=== PATIENT | female | born 1940 | race Caucasian/White ===

== ENCOUNTER 2019-03-07 13:29 | Outpatient (CLI) | payer MEDICARE ==
--- NOTE | 2019-03-07 14:27 | MMO ---
Bilateral MAMMO Bilat Screen [facility]. CLINICAL HISTORY: Patient is 78 years old and is seen for screening. The patient has no family history of breast cancer. The patient has no personal history of cancer. VIEWS: The views performed were: bilateral craniocaudal with tomosynthesis and bilateral mediolateral oblique with tomosynthesis. FILMS COMPARED: The present examination has been compared to prior imaging studies performed at [facility] on 03/03/2018, and at [place], [place] on 04/11/2014, 08/07/2015 and 09/10/2016. MAMMOGRAM FINDINGS: There are scattered fibroglandular densities. There are stable benign appearing calcifications seen in both breasts. There are no suspicious masses, suspicious calcifications, or new areas of architectural distortion. IMPRESSION: THERE IS NO MAMMOGRAPHIC EVIDENCE OF MALIGNANCY. A ROUTINE FOLLOW-UP MAMMOGRAM IN 1 YEAR IS RECOMMENDED. THE RESULTS OF THIS EXAM WERE SENT TO THE PATIENT. ACR BI-RADS Category 2 - Benign finding MAMMOGRAPHY NOTE: 1. A negative mammogram report should not delay a biopsy if a dominant of clinically suspicious mass is present. 2. Approximately 10% to 15% of breast cancers are not detected by mammography. 3. Adenosis and dense breasts may obscure an underlying neoplasm.
== END 2019-03-07 13:30 | disposition home or self-care (01) ==
LOC: BICMAMMO 13:29 → MERGE 13:45
PROVIDERS: ATTEND Internal Medicine Geriatric Medicine
DX: Z12.31 Encounter for screening mammogram for malignant neoplasm of breast (principal)
CPT/HCPCS: 77063; 77067

== ENCOUNTER 2019-03-10 11:15 | Outpatient (CLI) | payer MEDICARE ==
--- NOTE | 2019-03-10 11:48 | SJPRAD ---
RIGHT FOOT 3 VIEWS: Date: 03/10/19 HISTORY: Right foot pain after injury. Stepped on a tack. FINDINGS: Lisfranc joint alignment is anatomic. Plantar arch is maintained. Scattered degenerative changes thro ughout the foot. Small Achilles and plantar enthesophytes. Soft tissue swelling is apparent on the lateral view over the posterior aspect of the plantar surface No soft tissue gas or radiopaque foreign bodies are apparent. IMPRESSION: 1. Soft tissue swelling. No metallic foreign bodies visible. 2. Degenerative changes of the foot. No acute osseous abnormalities are demonstrated. POS: CET
== END 2019-03-10 11:16 | disposition home or self-care (01) ==
LOC: MWLC RAD 11:15
PROVIDERS: ATTEND Internal Medicine Geriatric Medicine
DX: M79.671 Pain in right foot (principal); M79.89 Other specified soft tissue disorders; M19.071 Primary osteoarthritis, right ankle and foot

== ENCOUNTER 2022-03-14 13:09 | Outpatient (CLI) | payer MEDICARE | END 2022-03-14 13:10 | disposition home or self-care (01) | LOC: BICRAD 13:09 | PROVIDERS: ATTEND Family Medicine | DX: M25.561 Pain in right knee (principal) ==

== ENCOUNTER 2023-05-26 13:18 | Outpatient (CLI) | payer OTHER | END 2023-05-26 13:19 | disposition home or self-care (01) | LOC: RAD 13:18 | PROVIDERS: ATTEND Family Medicine | DX: Z11.1 Encounter for screening for respiratory tuberculosis (principal) | CPT/HCPCS: 36415; 71045; 80053; 80061; 81001; 85025 ==

== ENCOUNTER 2023-09-29 11:39 | Outpatient (CLI) | payer MEDICARE | END 2023-09-29 11:40 | disposition home or self-care (01) | LOC: BICRAD 11:39 | PROVIDERS: ATTEND Family Medicine | DX: J40 Bronchitis, not specified as acute or chronic (principal) | CPT/HCPCS: 36415; 71046; 80053; 85025 ==

== ENCOUNTER → 2024-08-24 | Outpatient (CLI) | payer MEDICARE | LOC: BICRAD 10:19 | PROVIDERS: ATTEND Family Medicine | DX: M25.561 Pain in right knee (principal); M25.562 Pain in left knee; M17.0 Bilateral primary osteoarthritis of knee ==

== ENCOUNTER 2024-09-01 14:06 | Outpatient (CLI) | payer MEDICARE | END 2024-09-01 14:07 | disposition home or self-care (01) | LOC: SJX 14:06 | PROVIDERS: ATTEND Family Medicine | DX: N18.32 Chronic kidney disease, stage 3b (principal); N28.1 Cyst of kidney, acquired; N26.1 Atrophy of kidney (terminal); N28.89 Other specified disorders of kidney and ureter | CPT/HCPCS: 76770 ==

== ENCOUNTER 2024-11-08 20:41 | Emergency (ER) | payer MEDICARE ==
[2024-11-08] MEDS ORDERED: traMADol HCl 50 MG TAB ONE (22:09)
== END 2024-11-08 22:20 | disposition home or self-care (01) ==
LOC: ERS 20:41
DX: S70.01XA Contusion of right hip, initial encounter (principal); S60.221A Contusion of right hand, initial encounter; S80.01XA Contusion of right knee, initial encounter; I10 Essential (primary) hypertension; W07.XXXA Fall from chair, initial encounter
CPT/HCPCS: 99283